=== PATIENT | female | born 1970 | race Caucasian/White ===

== ENCOUNTER → 2017-11-17 | Outpatient (CLI) | payer OTHER ==
[2017-11-17 11:25] LABS: ALANINE AMINOTRANSFERASE 66 U/L (9-52); ALBUMIN 4.1 g/dL (3.5-5.0); ALKALINE PHOSPHATASE 62 U/L (38-126); ANION GAP 12 (5-19); ASPARTATE AMINO TRANSFERASE 51 U/L (14-36); BILIRUBIN,DIRECT 0.4 mg/dL (0.0-0.4); BILIRUBIN,TOTAL 0.4 mg/dL (0.2-1.3); BLOOD UREA NITROGEN 13 mg/dL (7-20); CALCIUM 9.5 mg/dL (8.4-10.2); CARBON DIOXIDE 21 mmol/L (22-30); CHLORIDE 103 mmol/L (98-107); CHOLESTEROL 136.49 mg/dL (0-200); GLUCOSE 260 mg/dL (75-110); POTASSIUM 4.8 mmol/L (3.6-5.0); SODIUM 135.8 mmol/L (137-145); TOTAL PROTEIN 7.2 g/dL (6.3-8.2); TRIGLYCERIDES 354 mg/dL (<150)
[2017-11-17 11:36] LABS: DIRECT LDL 72 mg/dL (<100)
[2017-11-17 12:13] LABS: VLDL CHOLESTEROL 70.8 mg/dL (10-31)
[2017-11-18 10:38] LABS: CREATININE URINE 80.5 mg/dL (Not Estab.); MICROALBUMIN URINE 12.5 ug/mL (Not Estab.)
== END ==
LOC: OD 09:11
PROVIDERS: ATTEND Family Medicine
DX: E11.9 Type 2 diabetes mellitus without complications (principal); E53.8 Deficiency of other specified B group vitamins
CPT/HCPCS: 36415; 80053; 80061; 82043; 82570; 82607; 83036

== ENCOUNTER → 2018-05-16 | Outpatient (CLI) | payer OTHER ==
[2018-05-16 10:54] LABS: ABSOLUTE EOSINOPHILS # (AUTO) 0.1 10^3/uL (0.0-0.6); ABSOLUTE LYMPHOCYTES (AUTO) 2.5 10^3/uL (0.5-4.7); ABSOLUTE MONOCYTES (AUTO) 0.6 10^3/uL (0.1-1.4); ABSOLUTE NEUT (AUTO) 3.1 10^3/uL (1.7-8.2); BASOPHILS % (AUTO) 0.4 % (0-2); EOSINOPHILS % (AUTO) 2.3 % (0-6); HEMATOCRIT 41.9 % (36.0-47.0); HEMOGLOBIN 14.6 g/dL (12.0-15.5); MEAN CORPUSCULAR HEMOGLOBIN 30.4 pg (27.0-33.4); MEAN CORPUSCULAR HGB CONC 34.8 g/dL (32.0-36.0); MEAN CORPUSCULAR VOLUME 87 fl (80-97); MONOCYTES % (AUTO) 8.8 % (3-13); PLATELET COUNT 242 10^3/uL (150-450); RED BLOOD COUNT 4.79 10^6/uL (3.72-5.28); RED CELL DISTRIBUTION WIDTH 13.6 % (11.5-14.0); SEGMENTED NEUTROPHILS % (AUTO) 48.5 % (42-78); TOTAL CELLS COUNTED % (AUTO) 100 %; WHITE BLOOD COUNT 6.4 10^3/uL (4.0-10.5)
[2018-05-16 11:39] LABS: ALANINE AMINOTRANSFERASE 122 U/L (9-52); ALBUMIN 4.4 g/dL (3.5-5.0); ALKALINE PHOSPHATASE 54 U/L (38-126); ANION GAP 15 (5-19); ASPARTATE AMINO TRANSFERASE 125 U/L (14-36); BILIRUBIN,DIRECT 0.3 mg/dL (0.0-0.4); BILIRUBIN,TOTAL 0.5 mg/dL (0.2-1.3); BLOOD UREA NITROGEN 9 mg/dL (7-20); CALCIUM 9.6 mg/dL (8.4-10.2); CARBON DIOXIDE 22 mmol/L (22-30); CHLORIDE 103 mmol/L (98-107); CHOLESTEROL 113.07 mg/dL (0-200); GLUCOSE 184 mg/dL (75-110); POTASSIUM 4.6 mmol/L (3.6-5.0); SODIUM 139.6 mmol/L (137-145); TOTAL PROTEIN 7.5 g/dL (6.3-8.2); TRIGLYCERIDES 155 mg/dL (<150)
[2018-05-16 11:49] LABS: DIRECT LDL 55 mg/dL (<100)
[2018-05-17 12:38] LABS: CREATININE URINE 248.7 mg/dL (Not Estab.); MICROALBUMIN URINE 91.6 ug/mL (Not Estab.)
== END ==
LOC: OD 09:22
PROVIDERS: ATTEND Family Medicine Geriatric Medicine
DX: E11.9 Type 2 diabetes mellitus without complications (principal); E78.5 Hyperlipidemia, unspecified; E53.8 Deficiency of other specified B group vitamins; E55.9 Vitamin D deficiency, unspecified; Z79.899 Other long term (current) drug therapy
CPT/HCPCS: 36415; 80053; 80061; 82043; 82306; 82570; 82607; 83036; 84443; 85025

== ENCOUNTER 2018-06-16 20:52 | Emergency (ER) | payer OTHER ==
--- NOTE | 2018-06-16 21:59 | ER Document Report ---
ED Extremity Problem, Lower - General Mode of Arrival: Ambulatory Information source: Patient TRAVEL OUTSIDE OF THE [place] IN LAST 30 DAYS: No <CHET MAYER - Last Filed: 06/16/18 22:52> <DAREK OWENS - Last Filed: 06/17/18 00:01> - General Chief Complaint: Foot Injury Stated Complaint: FOOT INJURY Time Seen by Provider: 06/16/18 21:28 Notes: 48-year-old female who presents to the emergency department today with complaints of a left foot injury. Patient states she was putting a shopping cart back when she slammed her left fourth toe under the cart. Patient has a blood blister to the end of the fourth digit and pain with movement of this digit. Patient able to ambulate with pain. (CHET MAYER) - Related Data Allergies/Adverse Reactions: No Known Allergies Allergy (Unverified 07/05/13 11:00) Past Medical History - General Information source: Patient - Social History Smoking Status: Never Smoker Cigarette use (# per day): No Frequency of alcohol use: None Drug Abuse: None Lives with: Family Family History: Reviewed & Not Pertinent Patient has suicidal ideation: No Patient has homicidal ideation: No Pulmonary Medical History: Reports: Hx Asthma - hx of ON FLONASE AND ALBUTEROL, Hx Bronchitis - hx of, Hx Pneumonia - hx of Endocrine Medical History: Reports: Hx Diabetes Mellitus Type 2 Past Surgical History: Reports: Hx Section - x4, Hx Gynecologic Surgery - STATES BENIGN ABD MASS RELATED TO ENDOMETRIOSIS, Hx Hysterectomy, Hx Orthopedic Surgery - shoulder rotater - Immunizations Hx Diphtheria, Pertussis, Tetanus Vaccination: Yes <CHET MAYER - Last Filed: 06/16/18 22:52> Review of Systems - Review of Systems Constitutional: No symptoms reported EENT: No symptoms reported Cardiovascular: No symptoms reported Respiratory: No symptoms reported Gastrointestinal: No symptoms reported Genitourinary: No symptoms reported Female Genitourinary: No symptoms reported Musculoskeletal: See HPI, Other - left 4th toe pain Skin: No symptoms reported Hematologic/Lymphatic: No symptoms reported Neurological/Psychological: No symptoms reported -: Yes All other systems reviewed and negative <CHET MAYER - Last Filed: 06/16/18 22:52> Physical Exam - Vital signs Interpretation: Normal - General General appearance: Appears well, Alert - HEENT Head: Normocephalic, Atraumatic Eyes: Normal Pupils: PERRL - Respiratory Respiratory status: No respiratory distress Chest status: Nontender Breath sounds: Normal Chest palpation: Normal - Cardiovascular Rhythm: Regular Heart sounds: Normal auscultation Murmur: No - Abdominal Inspection: Normal Distension: No distension Bowel sounds: Normal Tenderness: Nontender Organomegaly: No organomegaly - Back Back: Normal, Nontender - Extremities General upper extremity: Normal inspection, Nontender, Normal color, Normal ROM , Normal temperature General lower extremity: Tender, Normal color, Normal ROM, Normal temperature, Normal weight bearing. No: Kevin's sign Hip: Normal Thigh: Normal Knee: Normal Calf: Normal Ankle: Normal Foot: Tender - 4th toe Blood under nail, blood blister at end of nail - Neurological Neuro grossly intact: Yes Cognition: Normal Orientation: AAOx4 [place] Coma Scale Eye Opening: Spontaneous Dara Coma Scale Verbal: Oriented Dara Coma Scale Motor: Obeys Commands [place] Coma Scale Total: 15 Speech: Normal Motor strength normal: LUE, RUE, LLE, RLE Sensory: Normal - Psychological Associated symptoms: Normal affect, Normal mood - Skin Skin Temperature: Warm Skin Moisture: Dry Skin Color: Normal <DAREK OWENS - Last Filed: 06/17/18 00:01> - Vital signs Vitals: Temp Pulse Resp BP Pulse Ox 98.0 F 116 H 16 144/94 H 97 06/16/18 20:56 06/16/18 20:56 06/16/18 20:56 06/16/18 20:56 06/16/18 20:56 Course <CHET MAYER - Last Filed: 06/16/18 22:52> - Diagnostic Test Radiology reviewed: Reports reviewed <DAREK OWENS - Last Filed: 06/17/18 00:01> - Re-evaluation Re-evalutation: 06/16/18 Patient with foot injury who is diabetic. No open wound. It appears that there is blood under the nail and a blood blister at the toe. No evidence for fracture on x-ray. Nail has been trephinated and blood blister drained patient started on Keflex due to history of diabetes although she does not have neuropathy. She is to keep the wound clean and dry, soak it daily and follow- up with her doctor. Understands and agrees with plan. Please see procedure note. Stable for discharge home. Grateful for care. (DAREK OWENS) - Vital Signs Vital signs: Temp Pulse Resp BP Pulse Ox 98.5 F 83 18 125/80 99 06/16/18 23:36 06/16/18 23:36 06/16/18 23:36 06/16/18 23:36 06/16/18 23:36 Procedures - Nail Trephanation/Removal Foot Time completed: 23:15 - left 4th digit Betadine prep applied: Yes Method of Drainage: Nail cauterized Sterile Dressing Applied: Yes Finger Splint: No <DAREK OWENS - Last Filed: 06/17/18 00:01> Discharge <CHET MAYER - Last Filed: 06/16/18 22:52> <DAREK OWENS - Last Filed: 06/17/18 00:01> - Discharge Clinical Impression: Blood blister, Nail bed injury, Subungual hematoma Foot contusion Qualifiers: Encounter type: initial encounter Laterality: left Qualified Code(s): S90.32XA - Contusion of left foot, initial encounter Condition: Stable Disposition: HOME, SELF-CARE Instructions: Avulsed Nail ([facility]), Contusion ([facility]) Additional Instructions: Please follow-up with your doctor. Return if you have any worsening or concerns or symptoms. Prescriptions: Cephalexin Monohydrate [Keflex 500 mg Capsule] 500 mg PO Q6H 7 Days capsule Referrals: SILVIA JACQUES MD [Primary Care Provider] - Follow up in 3-5 days Scribe Attestation: 06/17/18 00:01 I personally performed the services described in the documentation, reviewed and edited the documentation which was dictated to the scribe in my presence, and it accurately records my words and actions. (DAREK OWENS) Scribe Documentation - Scribe Written by Lewis:: Lewis Erazo, 06/16/2018 [id number] acting as scribe for :: Ankit <CHET MAYER - Last Filed: 06/16/18 22:52>
--- NOTE | 2018-06-16 22:25 | RADIOLOGY REPORT (SQ) ---
3 VIEWS OF THE LEFT FOOT HISTORY: Foot injury. Pain to third and fourth digits. COMPARISON: None. FINDINGS/IMPRESSION: Normal bone mineralization. No acute fracture or malalignment. Mild degenerative changes of the first Type I accessory navicular. Surrounding soft tissues are swollen. No radiopaque foreign body is identified.
[2018-06-16] MEDS ORDERED: OXYCODONE-ACETAMINOPHEN 5-325 MG TABLET PO ONE (22:46)
[2018-06-16] MEDS ORDERED: HYDROCODONE/ACETAMINOPHEN 5-325 MG (6 TAB/ER DISP) PO PRN (23:19)
[2018-06-16 23:37] VITALS: BP 125/80
== END 2018-06-16 23:37 | disposition home or self-care (01) ==
LOC: ER 20:52
DX: S90.222A Contusion of left lesser toe(s) with damage to nail, initial encounter (principal); W22.8XXA Striking against or struck by other objects, initial encounter; Y93.89 Activity, other specified; E11.9 Type 2 diabetes mellitus without complications; J45.909 Unspecified asthma, uncomplicated
CPT/HCPCS: 99283

== ENCOUNTER → 2018-08-23 | Outpatient (CLI) | payer OTHER ==
[2018-08-23 13:54] LABS: A TYPE INFLUENZA AG NEGATIVE (NEGATIVE); B INFLUENZA AG NEGATIVE (NEGATIVE)
== END ==
LOC: OD 12:07
PROVIDERS: ATTEND Family Medicine Geriatric Medicine
DX: J04.0 Acute laryngitis (principal); R05 Cough
CPT/HCPCS: 87804

== ENCOUNTER → 2018-09-02 | Outpatient (CLI) | payer OTHER ==
[2018-09-02 08:23] LABS: ABSOLUTE EOSINOPHILS # (AUTO) 0.2 10^3/uL (0.0-0.6); ABSOLUTE LYMPHOCYTES (AUTO) 2.9 10^3/uL (0.5-4.7); ABSOLUTE MONOCYTES (AUTO) 0.4 10^3/uL (0.1-1.4); ABSOLUTE NEUT (AUTO) 3.2 10^3/uL (1.7-8.2); BASOPHILS % (AUTO) 0.5 % (0-2); EOSINOPHILS % (AUTO) 3.7 % (0-6); HEMATOCRIT 36.7 % (36.0-47.0); LYMPHOCYTES % (AUTO) 42.5 % (13-45); MEAN CORPUSCULAR HEMOGLOBIN 31.5 pg (27.0-33.4); MEAN CORPUSCULAR HGB CONC 35.4 g/dL (32.0-36.0); MEAN CORPUSCULAR VOLUME 89 fl (80-97); MONOCYTES % (AUTO) 6.1 % (3-13); PLATELET COUNT 277 10^3/uL (150-450); RED BLOOD COUNT 4.14 10^6/uL (3.72-5.28); RED CELL DISTRIBUTION WIDTH 13.3 % (11.5-14.0); SEGMENTED NEUTROPHILS % (AUTO) 47.2 % (42-78); TOTAL CELLS COUNTED % (AUTO) 100 %; WHITE BLOOD COUNT 6.8 10^3/uL (4.0-10.5)
[2018-09-02 09:05] LABS: ALANINE AMINOTRANSFERASE 95 U/L (9-52); AMYLASE 57 U/L (30-110); ANION GAP 13 (5-19); ASPARTATE AMINO TRANSFERASE 98 U/L (14-36); BLOOD UREA NITROGEN 14 mg/dL (7-20); CALCIUM 9.5 mg/dL (8.4-10.2); CARBON DIOXIDE 25 mmol/L (22-30); CHLORIDE 102 mmol/L (98-107); GAMMA-GLUTAMYL TRANSFERASE 122 U/L (8-78); GLUCOSE 186 mg/dL (75-110); POTASSIUM 4.1 mmol/L (3.6-5.0); SODIUM 140.2 mmol/L (137-145)
[2018-09-03 06:38] LABS: HEPATITIS A AB IGM Negative (Negative); HEPATITIS B CORE AB IGM Negative (Negative); HEPATITS B SURFACE ANTIGEN Negative (Negative)
[2018-09-03 12:37] LABS: CREATININE URINE 265.3 mg/dL (Not Estab.); MICROALBUMIN URINE 92.2 ug/mL (Not Estab.)
[2018-09-03 16:44] LABS: HEPATITIS C VIRUS ANTIBODY 0.2 s/co ratio (0.0-0.9)
== END ==
LOC: OD 07:11
PROVIDERS: ATTEND Family Medicine Geriatric Medicine
DX: E11.8 Type 2 diabetes mellitus with unspecified complications (principal); I10 Essential (primary) hypertension; J45.50 Severe persistent asthma, uncomplicated; Z79.899 Other long term (current) drug therapy
CPT/HCPCS: 36415; 80048; 80074; 82043; 82150; 82570; 82977; 83036; 84450; 84460; 85025

== ENCOUNTER → 2018-09-16 | Outpatient (CLI) | payer OTHER ==
[2018-09-18 06:11] LABS: MITOCHONDRIAL (M2) ANTIBODY 6.3 Units (0.0-20.0)
== END ==
LOC: OD 07:59
PROVIDERS: ATTEND Physician Assistant Surgical
DX: K76.0 Fatty (change of) liver, not elsewhere classified (principal); R94.5 Abnormal results of liver function studies
CPT/HCPCS: 36415; 86038; 86235; 86256

== ENCOUNTER → 2018-09-16 | Outpatient (CLI) | payer OTHER ==
--- NOTE | 2018-09-16 09:28 | WOMENS IMAGING REPORT ---
EXAM DESCRIPTION: U/S ABDOMEN LIMITED COMPLETED DATE/TIME: 09/16/2018 8:10 am REASON FOR STUDY: R94.5;K76.0 R94.5 ABNORMAL RESULTS OF LIVER FUNCTION STUDIES K76.0 FATTY (CHANGE OF) LIVER, NOT ELSEWHERE CLASSIFIED COMPARISON: None. TECHNIQUE: Dynamic and static grayscale images acquired of the abdomen and recorded on PACS. Additio nal selected color Doppler and spectral images recorded. LIMITATIONS: None. FINDINGS: PANCREAS: No masses. Visualized pancreatic duct normal caliber. LIVER: Normal size Mild fatty infiltration. No focal masses. LIVER VASCULATURE: Normal directional flow of the main portal vein and hepatic veins. GALLBLADDER: No stones. Normal wall thickness. No pericholecystic fluid. ULTRASOUND-DETECTED DINH'S SIGN: Negative. INTRAHEPATIC DUCTS AND COMMON DUCT: CBD and intrahepatic ducts normal caliber. No filling defects. INFERIOR VENA CAVA: Normal flow. AORTA: No aneurysm. RIGHT KIDNEY: Normal size. Normal echogenicity. No solid or suspicious masses. No hydronephros is. No calcifications. PERITONEAL AND RIGHT PLEURAL SPACE: No ascites or effusions. OTHER: No other significant findings. IMPRESSION: Fatty liver. No acute findings. TECHNICAL DOCUMENTATION: JOB ID: [id number] [employer]- All Rights Reserved Reading location - IP/workstation name: [email or web address]
== END ==
LOC: RAD 07:51
PROVIDERS: ATTEND Internal Medicine Gastroenterology
DX: K76.0 Fatty (change of) liver, not elsewhere classified (principal); R94.5 Abnormal results of liver function studies
CPT/HCPCS: 76705

== ENCOUNTER → 2018-10-01 | Outpatient (CLI) | payer OTHER ==
--- NOTE | 2018-10-01 13:12 | RADIOLOGY REPORT (SQ) ---
EXAM DESCRIPTION: CHEST 2 VIEWS COMPLETED DATE/TIME: 10/01/2018 12:51 pm REASON FOR STUDY: R05 COUGH COMPARISON: 06/19/2014 EXAM PARAMETERS: NUMBER OF VIEWS: two views TECHNIQUE: Digital Frontal and Lateral radiographic views of the chest acquired. RADIATION DOSE: NA LIMITATIONS: none FINDINGS: LUNGS AND PLEURA: No opacities, masses or pneumothorax. No pleural effusion. MEDIASTINUM AND HILAR STRUCTURES: No masses or contour abnormalities. HEART AND VASCULAR STRUCTURES: Heart normal size. No evidence for failure. BONES: No acute findings. HARDWARE: None in the chest. OTHER: No other significant finding. IMPRESSION: NO ACUTE RADIOGRAPHIC FINDING IN THE CHEST. TECHNICAL DOCUMENTATION: JOB ID: [id number] [employer]- All Rights Reserved Reading location - IP/workstation name: [email or web address]
== END ==
LOC: RAD 12:33
PROVIDERS: ATTEND Pediatrics Neonatal-Perinatal Medicine
DX: R05 Cough (principal)
CPT/HCPCS: 71046

== ENCOUNTER → 2018-11-15 | Outpatient (CLI) | payer SELFPAY ==
[2018-11-15 10:30] LABS: ABSOLUTE EOSINOPHILS # (AUTO) 0.2 10^3/uL (0.0-0.6); ABSOLUTE MONOCYTES (AUTO) 0.5 10^3/uL (0.1-1.4); ABSOLUTE NEUT (AUTO) 3.7 10^3/uL (1.7-8.2); BASOPHILS % (AUTO) 0.6 % (0-2); EOSINOPHILS % (AUTO) 2.8 % (0-6); HEMATOCRIT 40.5 % (36.0-47.0); HEMOGLOBIN 14.3 g/dL (12.0-15.5); LYMPHOCYTES % (AUTO) 40.4 % (13-45); MEAN CORPUSCULAR HEMOGLOBIN 31.1 pg (27.0-33.4); MEAN CORPUSCULAR HGB CONC 35.2 g/dL (32.0-36.0); MEAN CORPUSCULAR VOLUME 88 fl (80-97); MONOCYTES % (AUTO) 6.8 % (3-13); PLATELET COUNT 273 10^3/uL (150-450); RED BLOOD COUNT 4.59 10^6/uL (3.72-5.28); RED CELL DISTRIBUTION WIDTH 13.7 % (11.5-14.0); SEGMENTED NEUTROPHILS % (AUTO) 49.4 % (42-78); TOTAL CELLS COUNTED % (AUTO) 100 %; WHITE BLOOD COUNT 7.4 10^3/uL (4.0-10.5)
[2018-11-15 11:12] LABS: ALANINE AMINOTRANSFERASE 91 U/L (9-52); ALBUMIN 4.7 g/dL (3.5-5.0); ALKALINE PHOSPHATASE 59 U/L (38-126); AMYLASE 66 U/L (30-110); ANION GAP 13 (5-19); ASPARTATE AMINO TRANSFERASE 69 U/L (14-36); BILIRUBIN,DIRECT 0.2 mg/dL (0.0-0.4); BILIRUBIN,TOTAL 0.4 mg/dL (0.2-1.3); BLOOD UREA NITROGEN 12 mg/dL (7-20); CALCIUM 10.1 mg/dL (8.4-10.2); CARBON DIOXIDE 24 mmol/L (22-30); CHLORIDE 104 mmol/L (98-107); GLUCOSE 163 mg/dL (75-110); LIPASE 84.5 U/L (23-300); POTASSIUM 4.9 mmol/L (3.6-5.0); SODIUM 140.8 mmol/L (137-145); TOTAL PROTEIN 7.7 g/dL (6.3-8.2)
== END ==
LOC: LAB 09:47
PROVIDERS: ATTEND Physician Assistant Surgical
DX: R10.816 Epigastric abdominal tenderness (principal); R10.811 Right upper quadrant abdominal tenderness; R11.0 Nausea
CPT/HCPCS: 36415; 80048; 80076; 82150; 83690; 85025

== ENCOUNTER → 2018-11-18 | Outpatient (CLI) | payer OTHER ==
--- NOTE | 2018-11-18 10:08 | RADIOLOGY REPORT (SQ) ---
EXAM DESCRIPTION: CT ABDOMEN WITH IV ORAL CONT COMPLETED DATE/TIME: 11/18/2018 9:29 am REASON FOR STUDY: ABD TENDERNESS, EPIGASTRIC (R10.816), NAUSEA (R11.0) R10.811 RIGHT UPPER QUADRANT ABDOMINAL TENDERNESS COMPARISON: CT abdomen pelvis 06/02/2013 Abdominal ultrasound 09/16/2018 TECHNIQUE: CT scan of the abdomen performed with intravenous and with oral contrast using helical sc anning technique with dynamic intravenous contrast injection. Images reviewed with lung, soft tissue, and bone windows. Reconstructed coronal and sagittal MPR images reviewed. Delayed images for evaluat ion of the urinary system also acquired and evaluated. All images stored on PACS. All CT scanners at this facility use dose modulation, iterative reconstruc tion, and/or weight based dosing when appropriate to reduce radiation dose to as low as reasonably ac hievable (ALARA). [facility]: Dose Right [facility]: CareDose [facility]: Dose Right [facility]: Teradose 4D [facility]: Ybrain CONTRAST TYPE AND DOSE: contrast/concentration: Isovue 350.00 mg/ml; Total Contrast Delivered: 99.0 ml; Total Saline Delivered: 70.0 ml RENAL FUNCTION: Creatinine 0.5 RADIATION DOSE: CT Rad equipment meets quality standard of care and radiation dose reduction techniq ues were employed. CTDIvol: 18.4 - 20.7 mGy. DLP: 1484 mGy-cm. . LIMITATIONS: None. FINDINGS: LOWER CHEST: No significant findings. No nodules or infiltrates. LIVER: Normal size. No masses. No dilated ducts. SPLEEN: Normal size. No focal lesions. PANCREAS: No masses. No significant calcifications. No adjacent inflammation or peripancreatic fluid collections. Pancreatic duct not dilated. GALLBLADDER: No identified stones by CT criteria. No inflammatory changes to suggest cholecystitis. ADRENAL GLANDS: No significant masses or asymmetry. RIGHT KIDNEY AND URETER: No solid masses. No significant calcifications. No hydronephrosis or hyd roureter. LEFT KIDNEY AND URETER: No solid masses. No significant calcifications. No hydronephrosis or hydr oureter. AORTA AND VESSELS: No aneurysm. No dissection. Renal arteries, SMA, celiac without stenosis. RETROPERITONEUM: No retroperitoneal adenopathy, hemorrhage or masses. BOWEL AND PERITONEAL CAVITY: No masses or inflammatory changes. No free fluid or peritoneal masses. APPENDIX: Not in the field of view ABDOMINAL WALL: No masses. No hernias. BONES: No significant or acute findings. OTHER: No other significant finding. IMPRESSION: NORMAL CT OF THE ABDOMEN WITH INTRAVENOUS CONTRAST. TECHNICAL DOCUMENTATION: JOB ID: [id number] Quality ID # [id number]: Final reports with documentation of one or more dose reduction techniques (e.g., Au tomated exposure control, adjustment of the mA and/or kV according to patient size, use of iterative reconstruction technique) 2010 [employer]- All Rights Reserved Reading location - IP/workstation name: [email or web address]
== END ==
LOC: RAD 08:38
PROVIDERS: ATTEND Internal Medicine Gastroenterology
DX: R10.816 Epigastric abdominal tenderness (principal); R10.811 Right upper quadrant abdominal tenderness; R11.0 Nausea
CPT/HCPCS: 74160

== ENCOUNTER → 2019-09-12 | Outpatient (CLI) | payer OTHER ==
--- NOTE | 2019-09-12 12:42 | RADIOLOGY REPORT (SQ) ---
EXAM DESCRIPTION: CHEST PA/LATERAL COMPLETED DATE/TIME: 09/12/2019 12:34 pm REASON FOR STUDY: UNSPECIFIED ASTHMA, UNCOMPLICATED,WHEEZING COMPARISON: 10/01/2018 EXAM PARAMETERS: NUMBER OF VIEWS: two views TECHNIQUE: Digital Frontal and Lateral radiographic views of the chest acquired. RADIATION DOSE: NA LIMITATIONS: none FINDINGS: LUNGS AND PLEURA: No opacities, masses or pneumothorax. No pleural effusion. MEDIASTINUM AND HILAR STRUCTURES: No masses or contour abnormalities. HEART AND VASCULAR STRUCTURES: Heart normal size. No evidence for failure. BONES: No acute findings. HARDWARE: None in the chest. OTHER: No other significant finding. IMPRESSION: NO SIGNIFICANT RADIOGRAPHIC FINDING IN THE CHEST. TECHNICAL DOCUMENTATION: JOB ID: [id number] [employer]- All Rights Reserved Reading location - IP/workstation name: [email or web address]
== END ==
LOC: OD 12:18
PROVIDERS: ATTEND Family Medicine Geriatric Medicine
DX: J45.909 Unspecified asthma, uncomplicated (principal)
CPT/HCPCS: 71046

== ENCOUNTER 2019-09-15 18:40 | Inpatient (IN) | payer OTHER ==
[2019-09-15] MEDS ORDERED: IPRATROPIUM/ALBUTEROL 0.5-2.5 MG/3 ML AMPUL NEB ONE ×4 (18:50→22:11)
[2019-09-15] MEDS ORDERED: METHYLPREDNISOLONE INJ 125 MG/2 ML SDV IV ONE (18:51)
--- NOTE | 2019-09-15 18:55 | ER Document Report ---
ED Respiratory Problem - General Chief Complaint: Breathing Difficulty Stated Complaint: DIFFICULTY BREATHING Time Seen by Provider: 09/15/19 18:49 Primary Care Provider: SILVIA JACQUES MD [Primary Care Provider] - Follow up as needed Mode of Arrival: Wheelchair Information source: Patient Notes: 49-year-old female presented to ED for very short of breath and unable to catch her breath. She does have a history of asthma and respiratory failure. She is breathing very shallow very fast. O2 sats are 100% but her respirations are labored. Lung sounds do have a very pronounced squeak at the end of the inspiratory phase. I have greeted and performed a rapid initial assessment of this patient. A comprehensive ED assessment and evaluation of the patient, analysis of test results and completion of medical decision making process will be conducted by an additional ED providers. TRAVEL OUTSIDE OF THE [place] IN LAST 30 DAYS: No - Related Data Allergies/Adverse Reactions: No Known Allergies Allergy (Unverified 07/05/13 11:00) Past Medical History - Social History Family History: Reviewed & Not Pertinent - Past Medical History Cardiac Medical History: Denies: Hx Coronary Artery Disease, Hx Heart Attack, Hx Hypertension Pulmonary Medical History: Reports: Hx Asthma - hx of ON FLONASE AND ALBUTEROL, Hx Bronchitis - hx of, Hx Pneumonia - hx of Denies: Hx COPD Neurological Medical History: Denies: Hx Cerebrovascular Accident, Hx Seizures Endocrine Medical History: Reports: Hx Diabetes Mellitus Type 2 Renal/ Medical History: Denies: Hx Peritoneal Dialysis Musculoskeletal Medical History: Denies Hx Arthritis Past Surgical History: Reports: Hx Section - x4, Hx Gynecologic Surgery - STATES BENIGN ABD MASS RELATED TO ENDOMETRIOSIS, Hx Hysterectomy, Hx Orthopedic Surgery - shoulder rotater - Immunizations Hx Diphtheria, Pertussis, Tetanus Vaccination: Yes Physical Exam - Vital signs Vitals: Temp Pulse Resp BP Pulse Ox 97.9 F 84 64 H 143/96 H 100 09/15/19 18:47 09/15/19 18:47 09/15/19 18:47 09/15/19 18:47 09/15/19 18:47 Course - Vital Signs Vital signs: Temp Pulse Resp BP Pulse Ox 97.9 F 84 64 H 143/96 H 100 09/15/19 18:47 09/15/19 18:47 09/15/19 18:47 09/15/19 18:47 09/15/19 18:47 Discharge - Discharge Referrals: SILVIA JACQUES MD [Primary Care Provider] - Follow up as needed
--- NOTE | 2019-09-15 18:57 | ER Document Report ---
ED Medical Screen (RME) - General Chief Complaint: Shortness Of Breath Stated Complaint: DIFFICULTY BREATHING Time Seen by Provider: 09/15/19 18:49 Primary Care Provider: SILVIA JACQUES MD [Primary Care Provider] - Follow up as needed Mode of Arrival: Wheelchair Notes: 49-year-old female presented to ED for very short of breath and unable to catch her breath. She does have a history of asthma and respiratory failure. She is breathing very shallow very fast. O2 sats are 100% but her respirations are labored. Lung sounds do have a very pronounced squeak at the end of the inspiratory phase. I have greeted and performed a rapid initial assessment of this patient. A comprehensive ED assessment and evaluation of the patient, analysis of test results and completion of medical decision making process will be conducted by an additional ED providers. TRAVEL OUTSIDE OF THE [place] IN LAST 30 DAYS: No - Related Data Allergies/Adverse Reactions: No Known Allergies Allergy (Unverified 07/05/13 11:00) Past Medical History - Social History Frequency of alcohol use: None Drug Abuse: None - Past Medical History Cardiac Medical History: Denies: Hx Coronary Artery Disease, Hx Heart Attack, Hx Hypertension Pulmonary Medical History: Reports: Hx Asthma - hx of ON FLONASE AND ALBUTEROL, Hx Bronchitis - hx of, Hx Pneumonia - hx of Denies: Hx COPD Neurological Medical History: Denies: Hx Cerebrovascular Accident, Hx Seizures Endocrine Medical History: Reports: Hx Diabetes Mellitus Type 2 Renal/ Medical History: Denies: Hx Peritoneal Dialysis Musculoskeltal Medical History: Denies Hx Arthritis Past Surgical History: Reports: Hx Section - x4, Hx Gynecologic Surgery - STATES BENIGN ABD MASS RELATED TO ENDOMETRIOSIS, Hx Hysterectomy, Hx Orthopedic Surgery - shoulder rotater - Immunizations Hx Diphtheria, Pertussis, Tetanus Vaccination: Yes Physical Exam - Vital signs Vitals: Temp Pulse Resp BP Pulse Ox 97.9 F 84 64 H 143/96 H 100 09/15/19 18:47 09/15/19 18:47 09/15/19 18:47 09/15/19 18:47 09/15/19 18:47 Course - Vital Signs Vital signs: Temp Pulse Resp BP Pulse Ox 97.9 F 84 64 H 143/96 H 100 09/15/19 18:47 09/15/19 18:47 09/15/19 18:47 09/15/19 18:47 09/15/19 18:47 Doctor's Discharge - Discharge Referrals: SILVIA JACQUES MD [Primary Care Provider] - Follow up as needed
[2019-09-15] MEDS ORDERED: ALBUTEROL SULFATE 0.083% NEB 2.5 MG/3 ML AMPUL NEB SCH (19:00)
--- NOTE | 2019-09-15 19:12 | ER Document Report ---
ED General - General Chief Complaint: Shortness Of Breath Stated Complaint: DIFFICULTY BREATHING Time Seen by Provider: 09/15/19 18:49 Primary Care Provider: SILVIA JACQUES MD [Primary Care Provider] - Follow up as needed Mode of Arrival: Wheelchair TRAVEL OUTSIDE OF THE [place] IN LAST 30 DAYS: No - HPI Notes: Ms. Adan is a 49-year-old female with a longstanding history of severe asthma previously requiring admission to the critical care unit and intubation now presenting with sudden onset of respiratory distress within the last hour associated with wheezing and difficulty breathing. She denies chest pain. She denies fever. She denies sputum production. She says she is fully compliant with all of her usual medications. She is a non-smoker. Patient denies any history of drug abuse. Occasional social alcohol consumption. Pertinent prior history: Asthma is noted. Patient is also a type II diabetic. Previous surgery includes and hysterectomy. - Related Data Allergies/Adverse Reactions: No Known Allergies Allergy (Unverified 07/05/13 11:00) Past Medical History - General Information source: Patient, Relative - Social History Smoking Status: Never Smoker Frequency of alcohol use: None Drug Abuse: None Family History: Reviewed & Not Pertinent Patient has suicidal ideation: No Patient has homicidal ideation: No - Past Medical History Cardiac Medical History: Denies: Hx Coronary Artery Disease, Hx Heart Attack, Hx Hypertension Pulmonary Medical History: Reports: Hx Asthma - hx of ON FLONASE AND ALBUTEROL, Hx Bronchitis - hx of, Hx Pneumonia - hx of Denies: Hx COPD Neurological Medical History: Denies: Hx Cerebrovascular Accident, Hx Seizures Endocrine Medical History: Reports: Hx Diabetes Mellitus Type 2 Renal/ Medical History: Denies: Hx Peritoneal Dialysis Musculoskeletal Medical History: Denies Hx Arthritis Past Surgical History: Reports: Hx Section - x4, Hx Gynecologic Surgery - STATES BENIGN ABD MASS RELATED TO ENDOMETRIOSIS, Hx Hysterectomy, Hx Orthopedic Surgery - shoulder rotater - Immunizations Hx Diphtheria, Pertussis, Tetanus Vaccination: Yes Review of Systems - Review of Systems Notes: Constitutional: Negative for fever. HENT: Negative for sore throat. Eyes: Negative for visual changes. Cardiovascular: Negative for chest pain. Respiratory: As per HPI. Gastrointestinal: Negative for abdominal pain, vomiting or diarrhea. Genitourinary: Negative for dysuria. Musculoskeletal: Negative for back pain. Skin: Negative for rash. Neurological: Negative for headaches, weakness or numbness. 10 point ROS negative except as marked above and in HPI. Physical Exam - Vital signs Vitals: Temp Pulse Resp BP Pulse Ox 97.9 F 84 64 H 143/96 H 100 09/15/19 18:47 09/15/19 18:47 09/15/19 18:47 09/15/19 18:47 09/15/19 18:47 - Notes Notes: GENERAL: Mildly obese female of approximately stated age appearing breathless and anxious in moderate distress. SKIN: Diaphoretic. Good turgor no rashes. HEAD: Normocephalic atraumatic. EYES: PERRLA. EOMI. Conjunctivae and sclerae clear. EARS: CANALS AND TMS CLEAR. NOSE: CLEAR. MOUTH: Moist mucosa. Good dentition. No stridor or edema. No drooling. NECK: Supple. No masses or thyromegaly. No adenopathy. Carotids 2+ without bruits. No JVD. BACK: Symmetrical without tenderness. CHEST: Tachypnea with moderate use of accessory muscles. Poor air movement. Tight wheezes bilaterally. Scattered rhonchi. HEART: Regular rhythm. No murmur gallop or rub. ABDOMEN: Mildly obese. Soft nontender without masses, organomegaly or rebound. Bowel sounds normally active. No bruits. GENITALIA: Deferred. EXTREMITIES: No edema. No calf tenderness. Cap refill less than 1.5 seconds. Dorsalis pedis and posterior tibial pulses 3+ and symmetrical. NEUROLOGICAL: GCS 15. Alert and oriented x3. Normal gait. Fluent speech. Cranial nerves II through XII intact. Sensorimotor and cerebellar normal. Normal tone. PSYCHIATRIC: Anxious but cooperative Course - Re-evaluation Re-evalutation: 09/15/19 19:52 Patient initially received IV magnesium, IV Solu-Medrol, multiple DuoNeb treatments and IV normal saline along with supplemental oxygen. Wheezes were very tight and she is very anxious and looked as though she might require intubation on arrival. My recheck at this time shows that her respiratory rate has slowed she is much more comfortable now. She still has bilateral wheezes but she is moving air much better. Chest x-ray is reviewed and shows no obvious focal infiltrate nor pneumothorax. Formal read from radiologist is pending. All labs remain pending at this time. We will keep her on 2 L nasal O2 as she is maintaining a 98% sat with this and appears to be doing much better. 09/15/19 22:16 Patient is very comfortable with this time on 2 L of nasal O2 with a saturation of 97%. Heart rate is 100 respirations are 22/min. She is breathing comfortably at rest. When I asked her to take deep breaths she had another paroxysm of coughing and she definitely has persistent and expiratory wheezes. Her chest x-ray did not show any infiltrate. Findings are discussed with the on-call hospitalist Dr. Merino who will admit to the floor. I have ordered an additional nebulizer treatment for at this time. - Vital Signs Vital signs: Temp Pulse Resp BP Pulse Ox 97.9 F 84 26 H 146/82 H 92 09/15/19 18:47 09/15/19 18:47 09/15/19 21:01 09/15/19 21:01 09/15/19 21:01 - Laboratory Result Diagrams: 09/15/19 19:39 09/15/19 19:39 Laboratory results interpreted by me: 09/15/19 09/15/19 09/15/19 19:39 19:39 21:15 WBC 13.1 H Lymph % (Auto) 52.2 H Absolute Lymphs (auto) 6.8 H Seg Neutrophils % 38.0 L Carbonic Acid 0.87 L ABG pCO2 29.0 L ABG pO2 135.2 H ABG HCO3 17.8 L ABG Total CO2 18.7 L ABG O2 Saturation 98.8 H Sodium 136.5 L Creatinine 0.49 L Glucose 181 H Calcium 10.3 H AST 75 H Critical Care Note - Critical Care Note Total time excluding time spent on procedures (mins): 35 Comments: IV, O2, monitor. Supplemental oxygen. [id number] nebulizer treatments with DuoNeb. IV magnesium. IV Solu-Medrol. ABG and chest x-ray requested. Flu swab requested. Lab request include blood culture CBC comprehensive metabolic profile. Request EKG and troponin. Discharge - Discharge Clinical Impression: Asthma exacerbation Qualifiers: Asthma severity: severe Asthma persistence: unspecified Qualified Code(s): J45.901 - Unspecified asthma with (acute) exacerbation Condition: Fair Disposition: ADMITTED INPATIENT Admitting Provider: Wilber (Hospitalist) Unit Admitted: Medical Floor Referrals: SILVIA JACQUES MD [Primary Care Provider] - Follow up as needed
[2019-09-15] MEDS: MAGNESIUM SULFATE/D5W 1 GM/100 ML RTUPB IV SCH ×2 (19:15→19:29)
[2019-09-15 19:54] LABS: ABSOLUTE EOSINOPHILS # (AUTO) 0.4 10^3/uL (0.0-0.6); ABSOLUTE LYMPHOCYTES (AUTO) 6.8 10^3/uL (0.5-4.7); ABSOLUTE MONOCYTES (AUTO) 0.9 10^3/uL (0.1-1.4); BASOPHILS % (AUTO) 0.3 % (0-2); EOSINOPHILS % (AUTO) 2.8 % (0-6); HEMATOCRIT 40.7 % (36.0-47.0); LYMPHOCYTES % (AUTO) 52.2 % (13-45); MEAN CORPUSCULAR HEMOGLOBIN 30.4 pg (27.0-33.4); MEAN CORPUSCULAR HGB CONC 34.4 g/dL (32.0-36.0); MEAN CORPUSCULAR VOLUME 88 fl (80-97); MONOCYTES % (AUTO) 6.7 % (3-13); PLATELET COUNT 275 10^3/uL (150-450); RED CELL DISTRIBUTION WIDTH 13.4 % (11.5-14.0); TOTAL CELLS COUNTED % (AUTO) 100 %; WHITE BLOOD COUNT 13.1 10^3/uL (4.0-10.5)
--- NOTE | 2019-09-15 19:59 | RADIOLOGY REPORT (SQ) ---
EXAM DESCRIPTION: CHEST SINGLE VIEW COMPLETED DATE/TIME: 09/15/2019 7:29 pm REASON FOR STUDY: SOB COMPARISON: 09/12/2019 EXAM PARAMETERS: NUMBER OF VIEWS: One view. TECHNIQUE: Single frontal radiographic view of the chest acquired. RADIATION DOSE: NA LIMITATIONS: None. FINDINGS: LUNGS AND PLEURA: No opacities, masses or pneumothorax. No pleural effusion. MEDIASTINUM AND HILAR STRUCTURES: No masses. Contour normal. HEART AND VASCULAR STRUCTURES: Heart normal in size. Normal vasculature. BONES: No acute findings. HARDWARE: None in the chest. OTHER: No other significant finding. IMPRESSION: NO ACUTE RADIOGRAPHIC FINDING IN THE CHEST. TECHNICAL DOCUMENTATION: JOB ID: [id number] [employer] All Rights Reserved Reading location - IP/workstation name: [email or web address]
[2019-09-15 20:13] LABS: ALBUMIN 4.5 g/dL (3.5-5.0); ALKALINE PHOSPHATASE 60 U/L (38-126); ANION GAP 14 (5-19); ASPARTATE AMINO TRANSFERASE 75 U/L (14-36); BILIRUBIN,DIRECT 0.3 mg/dL (0.0-0.4); BILIRUBIN,TOTAL 0.4 mg/dL (0.2-1.3); BLOOD UREA NITROGEN 12 mg/dL (7-20); CALCIUM 10.3 mg/dL (8.4-10.2); CARBON DIOXIDE 23 mmol/L (22-30); CHLORIDE 100 mmol/L (98-107); GLUCOSE 181 mg/dL (75-110); POTASSIUM 3.8 mmol/L (3.6-5.0); TOTAL PROTEIN 7.7 g/dL (6.3-8.2)
[2019-09-15 20:21] LABS: A TYPE INFLUENZA AG NEGATIVE (NEGATIVE); B INFLUENZA AG NEGATIVE (NEGATIVE)
[2019-09-15 21:27] LABS: ARTERIAL BLOOD BASE EXCESS -5.4 mmol/L; ARTERIAL BLOOD H2CO3 0.87 mmol/L (1.05-1.35); ARTERIAL BLOOD HCO3 17.8 mmol/L (20-24); ARTERIAL BLOOD O2 SATURATION 98.8 % (94-98); ARTERIAL BLOOD PH 7.41 (7.35-7.45); ARTERIAL BLOOD PO2 135.2 mmHg (80-100); ARTERIAL BLOOD TOTAL CO2 18.7 mmol/L (21-25)
[2019-09-15 21:28] LABS: ARTERIAL BLOOD FIO2 2L
[2019-09-15] MEDS ORDERED: MAGNESIUM HYDROXIDE SUSP 30 ML UDCUP PO PRN (22:47)
[2019-09-15] MEDS ORDERED: LEVALBUTEROL HCL NEB 0.63 MG/3 ML AMPUL NEB PRN (22:47)
[2019-09-15] MEDS ORDERED: MAG HYDROX/AL HYDROX/SIMETH SUSP 30 ML UDCUP PO PRN (22:47)
[2019-09-15] MEDS ORDERED: ONDANSETRON HCL INJ/PF 4 MG/2 ML SDV IV PRN (22:47)
[2019-09-15] MEDS ORDERED: ACETAMINOPHEN 325 MG TABLET PO PRN (22:52)
[2019-09-15] MEDS ORDERED: GLUCAGON,HUMAN RECOMB 1 MG INJ IM PRN (22:53)
[2019-09-15] MEDS ORDERED: DEXTROSE 50%-WATER 25 GM/50 ML DISP.SYRIN IV PRN ×2 (22:53)
[2019-09-15] MEDS ORDERED: DEXTROSE 40% GEL 15 GM TUBE PO PRN ×2 (22:53)
[2019-09-15] MEDS ORDERED: INSULIN REG, HUMAN 100 UNIT/ML 3 ML VIAL (PYX) SUBCUT ONE (23:30)
--- NOTE | 2019-09-15 23:40 | PDOC H&P ---
History of Present Illness Admission Date/PCP: 09/15/19 22:25 SILVIA JACQUES MD Patient complains of: Dyspnea History of Present Illness: RICARDO FARNSWORTH is a 49 year old female who presented to the emergency room with acute dyspnea. Patient admits a sudden onset of severe dyspnea less than an hour prior to her presentation to the emergency room. Her dyspnea was accompanied by severe wheezing, diaphoresis and air hunger. She denies other associated or accompanying signs and symptoms. She admits numerous prior similar episodes related to her asthma some requiring intubation and ventilat ion. She has not identified any aggravating or ameliorating factors for her dyspnea. In the emergency room she was found to have hypoxia and status asthmaticus. She has responded to treatment with improvement in her overall dyspnea and her hypoxia has been corrected with supplemental oxygen delivered via nasal cannula. Patient was subsequently admitted to hospital for further evaluation treatment. Past Medical History Cardiac Medical History: Denies: Atrial Fibrillation, Congestive Heart Failure, Coronary Artery Disease, Myocardial Infarction, Hyperlipidema, Hypertension Pulmonary Medical History: Reports: Asthma - Moderate persistent extrinsic asthma, Bronchitis, Intubation, Pneumonia, Respiratory Failure Denies: Chronic Obstructive Pulmonary Disease (COPD) EENT Medical History: Denies: Cataracts, Ears - Hearing aids Neurological Medical History: Denies: Hemorrhagic CVA, Ischemic CVA, Seizures Endocrine Medical History: Reports: Diabetes Mellitus Type 2, Obesity Denies: Diabetes Mellitus Type 1, Hyperthyroidism, Hypothyroidism Renal/ Medical History: Denies: Chronic Kidney Disease, Nephrolithiasis Malignancy Medical History: Reports: None GI Medical History: Denies: Cirrhosis, Crohn's Disease, Gastroesophageal Reflux Disease, Hepatitis, Peptic Ulcer Disease, Ulcerative Colitis Musculoskeltal Medical History: Denies: Arthritis, Gout Skin Medical History: Denies: Eczema, Psoriasis Psychiatric Medical History: Reports: Depression Denies: Alcohol Dependency, Substance Abuse, Tobacco Dependency Traumatic Medical History: Reports: None Hematology: Denies: Anemia, Bleeding Tendencies Infectious Medical History: Reports: None Past Surgical History Past Surgical History: Reports: Section - x4, Hysterectomy, Orthopedic Surgery - Rotator cuff Social History Information Source: Patient Lives with: Alone Smoking Status: Never Smoker Electronic Cigarette use?: No Frequency of Alcohol Use: Occasional Hx Recreational Drug Use: No Drugs: None Hx Prescription Drug Abuse: No - Advance Directive Resuscitation Status: Full Code Surrogate healthcare decision maker:: Gunner Trevino Family History Family History: Hypertension. denies: CAD, DM, Malignancy Parental Family History Reviewed: Yes Children Family History Reviewed: No Sibling(s) Family History Reviewed.: Yes Medication/Allergy Home Medications: Montelukast Sodium [Singulair 10 mg Tablet] 10 mg PO QHS 07/05/13 Glipizide/Metformin HCl [Glipizide-Metformin 5-500 mg] 1 each PO BID 12/12/13 Fluticasone Propionate [Flonase Nasal [place] 50 Mcg/[place] 16 gm] 2 sprays NASL Q12 06/20/14 Fluticasone/Salmeterol [Advair 250-50 Diskus 28 dose] 1 inh IH Q12H 06/20/14 Albuterol Sulfate [Proair HFA Inhalation Aerosol 8.5 gm MDI] 2 puff IH Q4HP PRN #1 hfa.aer.ad 06/22/14 Levofloxacin [Levaquin 750 mg Tablet] 750 mg PO DAILY #5 tablet 06/22/14 Methylprednisolone [Medrol Dosepack (4 mg/Tab) 21 Tab/Dosepak] 4 mg PO ASDIR PRN #21 tab.ds.pk 06/22/14 Cephalexin Monohydrate [Keflex 500 mg Capsule] 500 mg PO Q6H 7 Days capsule 06/16/18 Allergies/Adverse Reactions: No Known Allergies Allergy (Unverified 07/05/13 11:00) Review of Systems Constitutional: ABSENT: chills, fever(s) Eyes: ABSENT: visual disturbances, other - Eye pain Ears: ABSENT: hearing changes, other - Ear pain Nose, Mouth, and Throat: ABSENT: headache(s), mouth pain, sore throat Cardiovascular: ABSENT: chest pain, palpitations Respiratory: PRESENT: as per HPI, dyspnea, other - Wheezing and air hunger Gastrointestinal: ABSENT: abdominal pain, constipation, diarrhea, nausea, vomiting Genitourinary: ABSENT: dysuria, hematuria Integumentary: PRESENT: as per HPI, diaphoresis. ABSENT: pruritus, rash Neurological: ABSENT: confusion, convulsions, focal weakness, memory loss, syncope Psychiatric: ABSENT: anxiety, depression Endocrine: ABSENT: cold intolerance, heat intolerance Hematologic/Lymphatic: ABSENT: easy bleeding, easy bruising Allergic/Immunologic: ABSENT: seasonal rhinorrhea Physical Exam Vital Signs: Temp Pulse Resp BP Pulse Ox 97.9 F 84 26 H 146/82 H 92 09/15/19 18:47 09/15/19 18:47 09/15/19 21:01 09/15/19 21:01 09/15/19 21:01 Intake & Output 09/13/19 09/14/19 09/15/19 23:59 23:59 23:59 Intake Total 100 Balance 100 Weight 110.3 kg General appearance: PRESENT: cooperative, mild distress - Due to dyspnea, obese, other - On supplemental oxygen at time of my exam Head exam: PRESENT: atraumatic, normocephalic Eye exam: PRESENT: conjunctiva pink. ABSENT: conjunctival injection, scleral icterus Ear exam: PRESENT: normal external ear exam. ABSENT: bleeding, drainage Mouth exam: PRESENT: dry mucosa, neck supple Neck exam: ABSENT: thyromegaly, tracheal deviation Respiratory exam: PRESENT: accessory muscle use - Moderate accessory muscle use and tripoding noted, decreased breath sounds - Markedly decreased air movement throughout all west, prolonged expiratory phas - Severely prolonged expiratory phase in all west, symmetrical, tachypnea, wheezes - Faint/tight end-e xpiratory wheezes in all west Cardiovascular exam: PRESENT: RRR, tachycardia. ABSENT: clicks, gallop, rubs Pulses: PRESENT: normal radial pulses, normal dorsalis pedis pul Vascular exam: PRESENT: normal capillary refill. ABSENT: pallor GI/Abdominal exam: PRESENT: normal bowel sounds, soft Rectal exam: PRESENT: deferred Extremities exam: ABSENT: joint swelling, pedal edema Musculoskeletal exam: ABSENT: deformity, dislocation Neurological exam: PRESENT: alert, oriented to person, oriented to place, oriented to time, oriented to situation, CN II-XII grossly intact. ABSENT: motor sensory deficit Psychiatric exam: PRESENT: appropriate affect, normal mood Skin exam: PRESENT: dry, intact, warm. ABSENT: jaundice, rash, urticaria Results Laboratory Results: 09/15/19 19:39 09/15/19 19:39 09/15/19 09/15/19 09/15/19 19:39 19:39 21:15 WBC 13.1 H RBC 4.60 Hgb 14.0 Hct 40.7 MCV 88 MCH 30.4 MCHC 34.4 RDW 13.4 Plt Count 275 Seg Neutrophils % 38.0 L Carbonic Acid 0.87 L HCO3/H2CO3 Ratio 20:1 ABG pH 7.41 ABG pCO2 29.0 L ABG pO2 135.2 H ABG HCO3 17.8 L ABG O2 Saturation 98.8 H ABG Base Excess -5.4 FiO2 2L Sodium 136.5 L Potassium 3.8 Chloride 100 Carbon Dioxide 23 Anion Gap 14 BUN 12 Creatinine 0.49 L Est GFR ( Amer) > 60 Glucose 181 H Calcium 10.3 H Total Bilirubin 0.4 AST 75 H Alkaline Phosphatase 60 Total Protein 7.7 Albumin 4.5 09/15/19 19:39 Troponin I < 0.012 Impressions: Chest X-Ray 09/15/19 00:00 IMPRESSION: NO ACUTE RADIOGRAPHIC FINDING IN THE CHEST. Assessment and Plan - Diagnosis (1) Asthma with status asthmaticus in adult Qualifiers: Asthma severity: moderate Asthma persistence: persistent Qualified Cod e(s): J45.42 - Moderate persistent asthma with status asthmaticus Is this a current diagnosis for this admission?: Yes (2) Acute respiratory failure with hypoxia Is this a current diagnosis for this admission?: Yes (3) Diabetes mellitus type 2 in obese Is this a current diagnosis for this admission?: Yes (4) Obesity (BMI 30-39.9) Is this a current diagnosis for this admission?: Yes - Plan Summary Summary: Patient will be admitted to the medical floor for routine supportive and symptomatic cares. She will be treated with aggressive pulmonary toilet utilizing Xopenex, Atrovent and Pulmicort delivered via nebulizer therapy. She will be treated with supplemental oxygen utilizing nasal cannula and/or noninvasive airway pressure support devices as needed to maintain an adequate oxygen saturation greater than 93%. She will receive Solu-Medrol IV 40 mg every 6 hours x3 doses. She will be continued on her usual medications for her chronic medical problems as appropriate. She will be placed on a diabetic diet with before meals and at bedtime Accu-Cheks and a sliding scale insulin for hyperglycemia as well as a hypoglycemic protocol in place. Daily CBCs and metabolic profiles will be obtained as needed. - Time Time Spent with patient: 15-24 minutes Medications reviewed and adjusted accordingly: Yes Anticipated discharge: Home - Inpatient Certification Based on my medical assessment, after consideration of the patient's comorbidities, presenting symptoms, or acuity I expect that the services needed warrant INPATIENT care.: Yes I certify that my determination is in accordance with my understanding of Medicare's requirements for reasonable and necessary INPATIENT services [42 CFR 412.3e].: Yes Medical Necessity: Need Close Monitoring Due to Risk of Patient Decompensation, Need for Nebulizer Therapy and Monitoring of Response, Risk of Complication if Not Cared For in Hospital
[2019-09-15] MEDS: MONTELUKAST SODIUM 10 MG TABLET PO SCH (23:42)
[2019-09-15] MEDS: METHYLPREDNISOLONE INJ 40 MG/1 ML SDV IV SCH (23:42)
[2019-09-15] MEDS: FAMOTIDINE 20 MG TABLET PO SCH (23:42)
[2019-09-15] MEDS: RINGERS SOLUTION,LACTATED 1,000 ML IV PRN (23:43)
[2019-09-15] MEDS: LEVALBUTEROL HCL NEB 1.25 MG/3 ML AMPUL NEB SCH (23:56)
[2019-09-15] MEDS: IPRATROPIUM BROMIDE 0.02% NEB 0.5 MG/2.5 ML AMPUL NEB SCH (23:56)
[2019-09-16 06:16] LABS: HEMATOCRIT 37.9 % (36.0-47.0); MEAN CORPUSCULAR HEMOGLOBIN 30.4 pg (27.0-33.4); MEAN CORPUSCULAR HGB CONC 34.2 g/dL (32.0-36.0); MEAN CORPUSCULAR VOLUME 89 fl (80-97); PLATELET COUNT 270 10^3/uL (150-450); RED BLOOD COUNT 4.26 10^6/uL (3.72-5.28); RED CELL DISTRIBUTION WIDTH 13.5 % (11.5-14.0); WHITE BLOOD COUNT 10.2 10^3/uL (4.0-10.5)
[2019-09-16 06:49] LABS: ALBUMIN 4.1 g/dL (3.5-5.0); ALKALINE PHOSPHATASE 55 U/L (38-126); ANION GAP 16 (5-19); ASPARTATE AMINO TRANSFERASE 84 U/L (14-36); BILIRUBIN,DIRECT 0.3 mg/dL (0.0-0.4); BILIRUBIN,TOTAL 0.5 mg/dL (0.2-1.3); BLOOD UREA NITROGEN 12 mg/dL (7-20); CALCIUM 9.9 mg/dL (8.4-10.2); CARBON DIOXIDE 20 mmol/L (22-30); CHLORIDE 99 mmol/L (98-107); GLUCOSE 363 mg/dL (75-110); TOTAL PROTEIN 7.1 g/dL (6.3-8.2)
[2019-09-16] MEDS: METHYLPREDNISOLONE INJ 40 MG/1 ML SDV IV SCH ×3 (06:50→22:19)
[2019-09-16] MEDS: RINGERS SOLUTION,LACTATED 1,000 ML IV PRN (06:51)
[2019-09-16] MEDS: HEPARIN SOD (PORCINE) 5,000 UNIT/ML 1 ML VIAL SUBCUT SCH ×3 (06:51→22:20)
[2019-09-16 06:58] LABS: POTASSIUM 5.2 mmol/L (3.6-5.0)
[2019-09-16] MEDS: LEVALBUTEROL HCL NEB 1.25 MG/3 ML AMPUL NEB SCH ×2 (08:16→15:54)
[2019-09-16] MEDS: IPRATROPIUM BROMIDE 0.02% NEB 0.5 MG/2.5 ML AMPUL NEB SCH ×2 (08:16→15:54)
[2019-09-16] MEDS: BUDESONIDE NEB 0.5 MG/2 ML AMPUL NEB SCH ×2 (08:16→19:25)
[2019-09-16] MEDS: INSULIN REG, HUMAN 100 UNIT/ML 3 ML VIAL (PYX) SUBCUT SCH ×4 (09:14→22:19)
[2019-09-16] MEDS: FAMOTIDINE 20 MG TABLET PO SCH ×2 (09:14→22:20)
[2019-09-16] MEDS: METFORMIN HCL 500 MG TABLET PO SCH ×2 (09:14→17:50)
[2019-09-16] MEDS: GLIPIZIDE 5 MG TABLET PO SCH ×2 (09:14→17:51)
[2019-09-16] MEDS: DOCUSATE SODIUM 100 MG CAPSULE PO SCH ×2 (09:17→17:54)
[2019-09-16] MEDS ORDERED: DIAZEPAM 5 MG TABLET PO PRN (12:24)
--- NOTE | 2019-09-16 12:26 | PDOC PROGRESS REPORT ---
Subjective Progress Note for:: 09/16/19 Reason For Visit: ACUTE STATUS ASTHMATICUS, ACUTE RESPIRATORY 09/16/2018 Patient admitted for acute asthmatic attack Physical Exam Vital Signs: Temp Pulse Resp BP Pulse Ox 97.5 F 62 28 H 142/82 H 99 09/16/19 07:00 09/16/19 08:16 09/16/19 08:16 09/16/19 07:00 09/16/19 08:16 Intake & Output 09/15/19 09/16/19 09/17/19 06:59 06:59 06:59 Intake Total 9900 Balance 9900 Weight 112.4 kg General appearance: PRESENT: mild distress, other - Patient is feeling much better on BiPAP Respiratory exam: PRESENT: decreased breath sounds, other Cardiovascular exam: PRESENT: RRR. ABSENT: diastolic murmur, rubs, systolic murmur Neurological exam: PRESENT: alert, awake, oriented to person, oriented to place, oriented to time, oriented to situation, CN II-XII grossly intact. ABSENT: motor sensory deficit Psychiatric exam: PRESENT: appropriate affect, normal mood, other - Pleasant. ABSENT: homicidal ideation, suicidal ideation Results Laboratory Results: 09/16/19 05:33 09/16/19 05:33 09/15/19 09/15/19 09/15/19 19:39 19:39 21:15 WBC 13.1 H RBC 4.60 Hgb 14.0 Hct 40.7 MCV 88 MCH 30.4 MCHC 34.4 RDW 13.4 Plt Count 275 Seg Neutrophils % 38.0 L Carbonic Acid 0.87 L HCO3/H2CO3 Ratio 20:1 ABG pH 7.41 ABG pCO2 29.0 L ABG pO2 135.2 H ABG HCO3 17.8 L ABG O2 Saturation 98.8 H ABG Base Excess -5.4 FiO2 2L Sodium 136.5 L Potassium 3.8 Chloride 100 Carbon Dioxide 23 Anion Gap 14 BUN 12 Creatinine 0.49 L Est GFR ( Amer) > 60 Glucose 181 H Calcium 10.3 H Magnesium Total Bilirubin 0.4 AST 75 H Alkaline Phosphatase 60 Total Protein 7.7 Albumin 4.5 TSH 09/16/19 09/16/19 09/16/19 05:33 05:33 05:33 WBC 10.2 RBC 4.26 Hgb 13.0 Hct 37.9 MCV 89 MCH 30.4 MCHC 34.2 RDW 13.5 Plt Count 270 Seg Neutrophils % Carbonic Acid HCO3/H2CO3 Ratio ABG pH ABG pCO2 ABG pO2 ABG HCO3 ABG O2 Saturation ABG Base Excess FiO2 Sodium 134.8 L Potassium 5.2 H D Chloride 99 Carbon Dioxide 20 L Anion Gap 16 BUN 12 Creatinine 0.47 L Est GFR ( Amer) > 60 Glucose 363 H Calcium 9.9 Magnesium 2.0 Total Bilirubin 0.5 AST 84 H Alkaline Phosphatase 55 Total Protein 7.1 Albumin 4.1 TSH 0.39 L 09/15/19 19:39 Troponin I < 0.012 Impressions: Chest X-Ray 09/15/19 00:00 IMPRESSION: NO ACUTE RADIOGRAPHIC FINDING IN THE CHEST. Assessment and Plan - Diagnosis (1) Asthma exacerbation Qualifiers: Asthma severity: moderate Asthma persistence: persistent Qualified Code( s): J45.41 - Moderate persistent asthma with (acute) exacerbation Is this a current diagnosis for this admission?: Yes (2) Diabetes mellitus type 2 in obese Is this a current diagnosis for this admission?: Yes (3) Obesity (BMI 30-39.9) Is this a current diagnosis for this admission?: Yes - Plan Summary Summary: Patient will be admitted to the medical floor for routine supportive and symptomatic cares. She will be treated with aggressive pulmonary toilet utilizing Xopenex, Atrovent and Pulmicort delivered via nebulizer therapy. She will be treated with supplemental oxygen utilizing nasal cannula and/or noninvasive airway pressure support devices as needed to maintain an adequate oxygen saturation greater than 93%. She will receive Solu-Medrol IV 40 mg every 6 hours x3 doses. She will be continued on her usual medications for her chronic medical problems as appropriate. She will be placed on a diabetic diet with before meals and at bedtime Accu-Cheks and a sliding scale insulin for hyperglycemia as well as a hypoglycemic protocol in place. Daily CBCs and metabolic profiles will be obtained as needed. 09/14/2019 Vital signs this morning reveal temperature 97.5, pulse is 74 ,blood pressure 142/82 ,respiration rate of 22 ,O2 sat 99% on 2 L nasal cannula Patient is however requiring BiPAP as well White count was 13.1 on admission today it is 10.2 Potassium slightly high at 5.2 renal functions normal glucose is in the 300s Flu swab a and B is negative Chest x-ray on admission showed no acute cardiopulmonary disease Patient is on her meds as taken at home plus pulmonary toiletry include Solu- Medrol 40 mg IV every 6 hours No antibiotics indicated at this time. Will be DC to home tomorrow on p.o. steroids - Time Time Spent with patient: 25-34 minutes
[2019-09-16] MEDS: FLUTICASONE/VILANTEROL 200-25 MCG/DOSE IH SCH (17:51)
[2019-09-16] MEDS ORDERED: (PENDING PHARMACY ID) (Fluticasone/Salmeterol 1 INH) IH SCH (22:00)
[2019-09-16] MEDS: MONTELUKAST SODIUM 10 MG TABLET PO SCH (22:20)
[2019-09-17] MEDS: LEVALBUTEROL HCL NEB 1.25 MG/3 ML AMPUL NEB SCH ×2 (00:30→08:32)
[2019-09-17] MEDS: IPRATROPIUM BROMIDE 0.02% NEB 0.5 MG/2.5 ML AMPUL NEB SCH ×2 (00:30→08:32)
[2019-09-17] MEDS: HEPARIN SOD (PORCINE) 5,000 UNIT/ML 1 ML VIAL SUBCUT SCH (05:41)
[2019-09-17] MEDS: BUDESONIDE NEB 0.5 MG/2 ML AMPUL NEB SCH (08:32)
[2019-09-17 08:48] VITALS: BP 128/72
[2019-09-17] MEDS: GLIPIZIDE 5 MG TABLET PO SCH (09:23)
[2019-09-17] MEDS: METFORMIN HCL 500 MG TABLET PO SCH (09:23)
[2019-09-17] MEDS: FLUTICASONE/VILANTEROL 200-25 MCG/DOSE IH SCH (09:23)
[2019-09-17] MEDS: FAMOTIDINE 20 MG TABLET PO SCH (09:23)
[2019-09-17] MEDS: METHYLPREDNISOLONE INJ 40 MG/1 ML SDV IV SCH (09:24)
[2019-09-17] MEDS: INSULIN REG, HUMAN 100 UNIT/ML 3 ML VIAL (PYX) SUBCUT SCH ×2 (09:24→12:53)
[2019-09-17] MEDS: DOCUSATE SODIUM 100 MG CAPSULE PO SCH (09:27)
--- NOTE | 2019-09-17 12:00 | RADIOLOGY REPORT (SQ) ---
EXAM DESCRIPTION: ABDOMEN 2 VIEWS COMPLETED DATE/TIME: 09/17/2019 10:31 am REASON FOR STUDY: right flank pain x 2 months COMPARISON: None. NUMBER OF VIEWS: Two views. TECHNIQUE: Supine and erect/decubitus radiographic images of the abdomen acquired. LIMITATIONS: None. FINDINGS: FREE AIR: None. No abnormal gas collections. LUNG BASES: Clear. BOWEL GAS PATTERN: Nonobstructive. Large amount of stool throughout the colon. CALCIFICATIONS: No suspicious calcifications. SOFT TISSUES: No gross mass or suggestion of organomegaly. HARDWARE: None in the abdomen. BONES: No acute fracture. No worrisome bone lesions. OTHER: No other significant finding. IMPRESSION: NO RADIOGRAPHIC EVIDENCE FOR ACUTE ABDOMINAL DISEASE. TECHNICAL DOCUMENTATION: JOB ID: [id number] [employer]- All Rights Reserved Reading location - IP/workstation name: [email or web address]
--- NOTE | 2019-09-17 16:50 | PDOC DISCHARGE SUMMARY ---
Impression - Admit/DC Date/PCP Admission Date/Primary Care Provider: 09/15/19 22:25 SILVIA JACQUES MD Discharge Date: 09/17/19 - Discharge Diagnosis (1) Asthma exacerbation Is this a current diagnosis for this admission?: Yes (2) Diabetes mellitus type 2 in obese Is this a current diagnosis for this admission?: Yes (3) Obesity (BMI 30-39.9) Is this a current diagnosis for this admission?: Yes - Assessment Summary: Patient will be admitted to the medical floor for routine supportive and symptomatic cares. She will be treated with aggressive pulmonary toilet utilizing Xopenex, Atrovent and Pulmicort delivered via nebulizer therapy. She will be treated with supplemental oxygen utilizing nasal cannula and/or noninvasive airway pressure support devices as needed to maintain an adequate oxygen saturation greater than 93%. She will receive Solu-Medrol IV 40 mg every 6 hours x3 doses. She will be continued on her usual medications for her chronic medical problems as appropriate. She will be placed on a diabetic diet with before meals and at bedtime Accu-Cheks and a sliding scale insulin for hyperglycemia as well as a hypoglycemic protocol in place. Daily CBCs and metabolic profiles will be obtained as needed. 09/16/2019 Vital signs this morning reveal temperature 97.5, pulse is 74 ,blood pressure 142/82 ,respiration rate of 22 ,O2 sat 99% on 2 L nasal cannula Patient is however requiring BiPAP as well White count was 13.1 on admission today it is 10.2 Potassium slightly high at 5.2 renal functions normal glucose is in the 300s Flu swab a and B is negative Chest x-ray on admission showed no acute cardiopulmonary disease Patient is on her meds as taken at home plus pulmonary toiletry include Solu- Medrol 40 mg IV every 6 hours No antibiotics indicated at this time. Will be DC to home tomorrow on p.o. steroids 09/17/2019 patient's respirations are doing much better she is smiling talking in full sentences To me today however that for the last 2 to 3 months she has had some right-sided abdominal wall pain she says the pain will come and go Did a 2 view of her abdomen today, besides a large amount of stool, no free air, no air-fluid levels, thing out of the ordinary patient is going to see her primary care doctor next week and be referred to gastroenterology in [place] may need a CT scan of the abdomen with and without contrast she may need a upper endoscopy. Both she and her sister who are in the room do not want to see any internet architect here in [place]. Which is what she was admitted for. Discharged home on a Medrol Dosepak Vital signs are stable today she is medically stable for discharge - Additional Information Resuscitation Status: Full Code Discharge Diet: As Tolerated Discharge Activity: Balance Activity w/Rest Referrals: SILVIA JACQUES MD [Primary Care Provider] - Follow up as needed Prescriptions: Methylprednisolone [Medrol Dosepack (4 mg/Tab) 21 Tab/Dosepak] 4 mg PO ASDIR PRN #21 tab.ds.pk PRN Reason: Home Medications: Montelukast Sodium [Singulair 10 mg Tablet] 10 mg PO QHS 07/05/13 Glipizide/Metformin HCl [Glipizide-Metformin 5-500 mg] 2 each PO BID 12/12/13 Fluticasone Propionate [Flonase Nasal [place] 50 Mcg/[place] 16 gm] 2 sprays NASL Q12 06/20/14 Albuterol Sulfate [Proair HFA Inhalation Aerosol 8.5 gm MDI] 2 puff IH Q4HP PRN #1 hfa.aer.ad 06/22/14 Butalb/Acetaminophen/Caffeine [Fioricet 50-300-40 mg Capsule] 1 tab PO Q6HP PRN 09/15/19 Diazepam [Valium 5 mg Tablet] 1 tab PO BIDP PRN 09/15/19 Levocetirizine Dihydrochloride [Allergy Relief] 5 mg PO QHS 09/15/19 Fluticasone/Salmeterol [Advair 250-50 Diskus 14 Dose/Diskus] 1 inh IH Q12 09/16/19 Methylprednisolone [Medrol Dosepack (4 mg/Tab) 21 Tab/Dosepak] 4 mg PO ASDIR PRN #21 tab.ds.pk 09/17/19 History of Present Illiness History of Present Illness: RICARDO FARNSWORTH is a 49 year old female Physical Exam Vital Signs: Temp Pulse Resp BP Pulse Ox 98.5 F 62 20 128/72 H 99 09/17/19 13:07 09/17/19 13:07 09/17/19 13:07 09/17/19 13:07 09/17/19 13:07 Intake & Output 09/16/19 09/17/19 09/18/19 06:59 06:59 06:59 Intake Total 9900 3150 480 Balance 9900 3150 480 Weight 112.4 kg 112.5 kg Results Laboratory Results: WBC 10.2 10^3/uL (4.0-10.5) 09/16/19 05:33 RBC 4.26 10^6/uL (3.72-5.28) 09/16/19 05:33 Hgb 13.0 g/dL (12.0-15.5) 09/16/19 05:33 Hct 37.9 % (36.0-47.0) 09/16/19 05:33 MCV 89 fl (80-97) 09/16/19 05:33 MCH 30.4 pg (27.0-33.4) 09/16/19 05:33 MCHC 34.2 g/dL (32.0-36.0) 09/16/19 05:33 RDW 13.5 % (11.5-14.0) 09/16/19 05:33 Plt Count 270 10^3/uL (150-450) 09/16/19 05:33 Lymph % (Auto) 52.2 % (13-45) H 09/15/19 19:39 [place] % (Auto) 6.7 % (3-13) 09/15/19 19:39 Eos % (Auto) 2.8 % (0-6) 09/15/19 19:39 Baso % (Auto) 0.3 % (0-2) 09/15/19 19:39 Absolute Neuts (auto) 5.0 10^3/uL (1.7-8.2) 09/15/19 19:39 Absolute Lymphs (auto) 6.8 10^3/uL (0.5-4.7) H 09/15/19 19:39 Absolute Monos (auto) 0.9 10^3/uL (0.1-1.4) 09/15/19 19:39 Absolute Eos (auto) 0.4 10^3/uL (0.0-0.6) 09/15/19 19:39 Absolute Basos (auto) 0.0 10^3/uL (0.0-0.2) 09/15/19 19:39 Seg Neutrophils % 38.0 % (42-78) L 09/15/19 19:39 Carbonic Acid 0.87 mmol/L (1.05-1.35) L 09/15/19 21:15 HCO3/H2CO3 Ratio 20:1 09/15/19 21:15 ABG pH 7.41 (7.35-7.45) 09/15/19 21:15 ABG pCO2 29.0 mmHg (35-45) L 09/15/19 21:15 ABG pO2 135.2 mmHg (80-100) H 09/15/19 21:15 ABG HCO3 17.8 mmol/L (20-24) L 09/15/19 21:15 ABG Total CO2 18.7 mmol/L (21-25) L 09/15/19 21:15 ABG O2 Saturation 98.8 % (94-98) H 09/15/19 21:15 ABG Base Excess -5.4 mmol/L 09/15/19 21:15 FiO2 2L 09/15/19 21:15 Sodium 134.8 mmol/L (137-145) L 09/16/19 05:33 Potassium 5.2 mmol/L (3.6-5.0) H D 09/16/19 05:33 Chloride 99 mmol/L (98-107) 09/16/19 05:33 Carbon Dioxide 20 mmol/L (22-30) L 09/16/19 05:33 Anion Gap 16 (5-19) 09/16/19 05:33 BUN 12 mg/dL (7-20) 09/16/19 05:33 Creatinine 0.47 mg/dL (0.52-1.25) L 09/16/19 05:33 Est GFR ( Amer) > 60 (>60) 09/16/19 05:33 Est GFR (MDRD) Non-Af > 60 (>60) 09/16/19 05:33 Glucose 363 mg/dL (75-110) H 09/16/19 05:33 POC Glucose 339 mg/dL (70-110) H 09/17/19 12:46 Hemoglobin A1c % 9.0 % (4.7-6.0) H 09/16/19 05:33 Calcium 9.9 mg/dL (8.4-10.2) 09/16/19 05:33 Magnesium 2.0 mg/dL (1.6-2.3) 09/16/19 05:33 Total Bilirubin 0.5 mg/dL (0.2-1.3) 09/16/19 05:33 Direct Bilirubin 0.3 mg/dL (0.0-0.4) 09/16/19 05:33 Neonat Total Bilirubin Not Reportable 09/16/19 05:33 Neonat Direct Bilirubin Not Reportable 09/16/19 05:33 Neonat Indirect Bili Not Reportable 09/16/19 05:33 AST 84 U/L (14-36) H 09/16/19 05:33 ALT 90 U/L (<35) 09/16/19 05:33 Alkaline Phosphatase 55 U/L (38-126) 09/16/19 05:33 Troponin I < 0.012 ng/mL 09/15/19 19:39 Total Protein 7.1 g/dL (6.3-8.2) 09/16/19 05:33 Albumin 4.1 g/dL (3.5-5.0) 09/16/19 05:33 TSH 0.39 uIU/mL (0.47-4.68) L 09/16/19 05:33 Influenza A (Rapid) NEGATIVE (NEGATIVE) 09/15/19 19:45 Influenza B (Rapid) NEGATIVE (NEGATIVE) 09/15/19 19:45 09/15/19 19:39 Troponin I < 0.012 Impressions: Chest X-Ray 09/15/19 00:00 IMPRESSION: NO ACUTE RADIOGRAPHIC FINDING IN THE CHEST. Abdomen X-Ray 09/17/19 00:00 IMPRESSION: NO RADIOGRAPHIC EVIDENCE FOR ACUTE ABDOMINAL DISEASE. Stroke Is this a Stroke Patient?: No Acute Heart Failure - Is this a Heart Failure Patient?: No
== END 2019-09-17 13:35 | disposition home or self-care (01) | DRG 203 ==
LOC: ER 18:40 → EH 22:25 → 5 23:12
PROVIDERS: ADMIT Emergency Medicine; ATTEND Emergency Medicine
DX: J45.42 Moderate persistent asthma with status asthmaticus (principal); J45.41 Moderate persistent asthma with (acute) exacerbation; E11.8 Type 2 diabetes mellitus with unspecified complications; Z79.51 Long term (current) use of inhaled steroids
CPT/HCPCS: 36415; 71045; 74019; 80053; 82803; 82962; 83036; 83735; 84443; 84484; 85025; 85027; 87804; 94640; 94660; 96374; 96375; 99291; J1644; J1815; J2920; J2930; J3475; J3490; J7120; J7620

== ENCOUNTER → 2019-10-09 | Outpatient (CLI) | payer OTHER ==
--- NOTE | 2019-10-09 14:23 | RADIOLOGY REPORT (SQ) ---
EXAM DESCRIPTION: L SPINE WHOLE COMPLETED DATE/TIME: 10/09/2019 10:49 am REASON FOR STUDY: M54.5 LOW BACK PAIN R10.11 RIGHT UPPER QUADRANT PAIN COMPARISON: None. NUMBER OF VIEWS: Five views including obliques. TECHNIQUE: AP, lateral, oblique, and sacral radiographic images acquired of the lumbar spine. LIMITATIONS: None. FINDINGS: MINERALIZATION: Normal. SEGMENTATION: Normal. No transitional anatomy. ALIGNMENT: Normal. VERTEBRAE: Maintained height. No fracture or worrisome bone lesion. DISCS: Preserved height. There are some small marginal osteophytes at L1-2 the and at the superior a spect of L3. POSTERIOR ELEMENTS: Pedicles and facets are intact. No pars defect or posterior arch defects. HARDWARE: None in the spine. PARASPINAL SOFT TISSUES: Normal. PELVIS: Intact as visualized. No fractures or worrisome bone lesions. SI joints intact. OTHER: No other significant finding. IMPRESSION: Mild spondylosis. TECHNICAL DOCUMENTATION: JOB ID: [id number] [employer]- All Rights Reserved Reading location - IP/workstation name: [email or web address]
--- NOTE | 2019-10-09 14:31 | RADIOLOGY REPORT (SQ) ---
EXAM DESCRIPTION: SACRUM AND COCCYX COMPLETED DATE/TIME: 10/09/2019 10:49 am REASON FOR STUDY: M54.5 LOW BACK PAIN R10.11 RIGHT UPPER QUADRANT PAIN COMPARISON: None. NUMBER OF VIEWS: Three views. TECHNIQUE: AP, lateral, and tilt views of the sacrum and coccyx. LIMITATIONS: None. FINDINGS: MINERALIZATION: Normal. BONES: No acute fracture or dislocation. No worrisome bone lesions. SOFT TISSUES: No soft tissue swelling. No foreign body. OTHER: No other significant finding. IMPRESSION: NEGATIVE STUDY OF THE SACRUM AND COCCYX. TECHNICAL DOCUMENTATION: JOB ID: [id number] [employer]- All Rights Reserved Reading location - IP/workstation name: [email or web address]
--- NOTE | 2019-10-09 14:56 | RADIOLOGY REPORT (SQ) ---
EXAM DESCRIPTION: U/S ABDOMEN LIMITED W/O DOP COMPLETED DATE/TIME: 10/09/2019 11:09 am REASON FOR STUDY: R10.11 RIGHT UPPER QUADRANT PAIN R10.11 RIGHT UPPER QUADRANT PAIN COMPARISON: None. TECHNIQUE: Dynamic and static grayscale images acquired of the abdomen and recorded on PACS. Additio nal selected color Doppler and spectral images recorded. LIMITATIONS: None. FINDINGS: PANCREAS: No mass. No ductal dilatation. Tail of the pancreas is not well seen. LIVER: Hepatomegaly. Increased echogenicity. No definable mass. LIVER VASCULATURE: Normal directional flow of the main portal vein and hepatic veins. GALLBLADDER: No stones. Normal wall thickness. No pericholecystic fluid. ULTRASOUND-DETECTED DINH'S SIGN: Negative. INTRAHEPATIC DUCTS AND COMMON DUCT: CBD and intrahepatic ducts normal caliber. No filling defects. INFERIOR VENA CAVA: Not imaged. AORTA: No aneurysm. RIGHT KIDNEY: Normal size, 13.8 cm. Normal echogenicity. No solid or suspicious masses. No hydroneph rosis. No calcifications. PERITONEAL AND RIGHT PLEURAL SPACE: No ascites or effusions. OTHER: No other significant findings. IMPRESSION: Hepatomegaly with fatty infiltration of the liver. TECHNICAL DOCUMENTATION: JOB ID: [id number] [employer]- All Rights Reserved Reading location - IP/workstation name: [email or web address]
== END ==
LOC: RAD 10:05
PROVIDERS: ATTEND Family Medicine Geriatric Medicine
DX: M54.5 Low back pain (principal); M47.896 Other spondylosis, lumbar region; R10.11 Right upper quadrant pain; K76.0 Fatty (change of) liver, not elsewhere classified; R16.0 Hepatomegaly, not elsewhere classified
CPT/HCPCS: 72110; 72220; 76705

== ENCOUNTER → 2019-10-19 | Outpatient (CLI) | payer OTHER ==
[2019-10-19 08:41] LABS: ABSOLUTE EOSINOPHILS # (AUTO) 0.1 10^3/uL (0.0-0.6); ABSOLUTE LYMPHOCYTES (AUTO) 3.3 10^3/uL (0.5-4.7); ABSOLUTE MONOCYTES (AUTO) 0.6 10^3/uL (0.1-1.4); ABSOLUTE NEUT (AUTO) 2.3 10^3/uL (1.7-8.2); BASOPHILS % (AUTO) 0.4 % (0-2); EOSINOPHILS % (AUTO) 2.3 % (0-6); HEMATOCRIT 40.2 % (36.0-47.0); LYMPHOCYTES % (AUTO) 51.8 % (13-45); MEAN CORPUSCULAR HEMOGLOBIN 30.6 pg (27.0-33.4); MEAN CORPUSCULAR HGB CONC 34.8 g/dL (32.0-36.0); MEAN CORPUSCULAR VOLUME 88 fl (80-97); PLATELET COUNT 300 10^3/uL (150-450); RED BLOOD COUNT 4.56 10^6/uL (3.72-5.28); RED CELL DISTRIBUTION WIDTH 13.8 % (11.5-14.0); SEGMENTED NEUTROPHILS % (AUTO) 36.5 % (42-78); TOTAL CELLS COUNTED % (AUTO) 100 %; WHITE BLOOD COUNT 6.3 10^3/uL (4.0-10.5)
[2019-10-19 09:01] LABS: ALBUMIN 4.2 g/dL (3.5-5.0); ALKALINE PHOSPHATASE 55 U/L (38-126); AMYLASE 56 U/L (30-110); ANION GAP 10 (5-19); ASPARTATE AMINO TRANSFERASE 78 U/L (14-36); BILIRUBIN,TOTAL 0.4 mg/dL (0.2-1.3); BLOOD UREA NITROGEN 9 mg/dL (7-20); CALCIUM 9.6 mg/dL (8.4-10.2); CARBON DIOXIDE 27 mmol/L (22-30); CHLORIDE 102 mmol/L (98-107); CHOLESTEROL 195.86 mg/dL (0-200); GLUCOSE 154 mg/dL (75-110); TRIGLYCERIDES 285 mg/dL (<150)
[2019-10-19 09:12] LABS: DIRECT LDL 136 mg/dL (<100)
[2019-10-20 15:12] LABS: C DIFFICILE GDH NEGATIVE (NEGATIVE)
== END ==
LOC: OD 07:41
PROVIDERS: ATTEND Family Medicine Geriatric Medicine
DX: K52.9 Noninfective gastroenteritis and colitis, unspecified (principal); R10.11 Right upper quadrant pain; E11.9 Type 2 diabetes mellitus without complications; J30.9 Allergic rhinitis, unspecified; E78.5 Hyperlipidemia, unspecified; M62.838 Other muscle spasm; E66.9 Obesity, unspecified; Z79.899 Other long term (current) drug therapy
CPT/HCPCS: 36415; 80053; 80061; 82043; 82150; 82570; 83036; 83520; 83690; 83986; 84443; 85025; 87177; 87205; 87324; 87449

== ENCOUNTER → 2020-01-10 | Outpatient (CLI) | payer OTHER ==
[2020-01-10 09:05] LABS: ALBUMIN 4.2 g/dL (3.5-5.0); ALKALINE PHOSPHATASE 47 U/L (38-126); ANION GAP 9 (5-19); ASPARTATE AMINO TRANSFERASE 64 U/L (14-36); BILIRUBIN,TOTAL 0.2 mg/dL (0.2-1.3); BLOOD UREA NITROGEN 7 mg/dL (7-20); CALCIUM 9.1 mg/dL (8.4-10.2); CARBON DIOXIDE 27 mmol/L (22-30); CHLORIDE 101 mmol/L (98-107); GLUCOSE 171 mg/dL (75-110); POTASSIUM 4.5 mmol/L (3.6-5.0)
== END ==
LOC: OD 07:50
PROVIDERS: ATTEND Internal Medicine Gastroenterology
DX: R94.5 Abnormal results of liver function studies (principal)
CPT/HCPCS: 36415; 80053

== ENCOUNTER → 2020-03-07 | Outpatient (CLI) | payer OTHER ==
[2020-03-07 09:39] LABS: ANION GAP 10 (5-19); ASPARTATE AMINO TRANSFERASE 69 U/L (14-36); BLOOD UREA NITROGEN 6 mg/dL (7-20); CALCIUM 9.6 mg/dL (8.4-10.2); CARBON DIOXIDE 26 mmol/L (22-30); CHLORIDE 101 mmol/L (98-107); CHOLESTEROL 99.94 mg/dL (0-200); GLUCOSE 155 mg/dL (75-110); POTASSIUM 4.7 mmol/L (3.6-5.0); TRIGLYCERIDES 155 mg/dL (<150)
[2020-03-07 09:50] LABS: DIRECT LDL 48 mg/dL (<100)
[2020-03-08 11:37] LABS: CREATININE URINE 223.6 mg/dL (Not Estab.); MICROALBUMIN URINE 55.6 ug/mL (Not Estab.)
== END ==
LOC: OD 07:11
PROVIDERS: ATTEND Family Medicine Geriatric Medicine
DX: E78.5 Hyperlipidemia, unspecified (principal); R74.0 Nonspecific elevation of levels of transaminase and lactic acid dehydrogenase [LDH]; E11.9 Type 2 diabetes mellitus without complications; Z79.899 Other long term (current) drug therapy
CPT/HCPCS: 36415; 80048; 80061; 82043; 82570; 83036; 84450; 84460

== ENCOUNTER → 2020-08-08 | Outpatient (CLI) | payer OTHER ==
[2020-08-08 11:53] LABS: ALBUMIN 4.5 g/dL (3.5-5.0); ALKALINE PHOSPHATASE 54 U/L (38-126); ANION GAP 11 (5-19); ASPARTATE AMINO TRANSFERASE 47 U/L (14-36); BILIRUBIN,DIRECT 0.1 mg/dL (0.0-0.4); BILIRUBIN,TOTAL 0.3 mg/dL (0.2-1.3); BLOOD UREA NITROGEN 9 mg/dL (7-20); CALCIUM 9.8 mg/dL (8.4-10.2); CARBON DIOXIDE 26 mmol/L (22-30); CHLORIDE 102 mmol/L (98-107); CHOLESTEROL 178.11 mg/dL (0-200); GLUCOSE 88 mg/dL (75-110); POTASSIUM 4.3 mmol/L (3.6-5.0); TOTAL PROTEIN 7.6 g/dL (6.3-8.2); TRIGLYCERIDES 220 mg/dL (<150)
[2020-08-08 12:04] LABS: DIRECT LDL 117 mg/dL (<100)
== END ==
LOC: OD 10:23
PROVIDERS: ATTEND Family Medicine Geriatric Medicine
DX: E78.5 Hyperlipidemia, unspecified (principal); E11.9 Type 2 diabetes mellitus without complications; Z79.899 Other long term (current) drug therapy
CPT/HCPCS: 36415; 80053; 80061

== ENCOUNTER → 2020-10-04 | Outpatient (CLI) | payer OTHER ==
[2020-10-04 10:34] LABS: ALBUMIN 4.2 g/dL (3.5-5.0); ALKALINE PHOSPHATASE 58 U/L (38-126); ANION GAP 11 (5-19); ASPARTATE AMINO TRANSFERASE 25 U/L (14-36); BILIRUBIN,DIRECT 0.2 mg/dL (0.0-0.4); BILIRUBIN,TOTAL 0.3 mg/dL (0.2-1.3); BLOOD UREA NITROGEN 12 mg/dL (7-20); CARBON DIOXIDE 23 mmol/L (22-30); CHLORIDE 103 mmol/L (98-107); CHOLESTEROL 85.97 mg/dL (0-200); GLUCOSE 152 mg/dL (75-110); POTASSIUM 4.3 mmol/L (3.6-5.0); TOTAL PROTEIN 7.1 g/dL (6.3-8.2); TRIGLYCERIDES 116 mg/dL (<150)
[2020-10-04 10:50] LABS: DIRECT LDL < 30 mg/dL (<100)
== END ==
LOC: LAB 09:29
PROVIDERS: ATTEND Family Medicine Geriatric Medicine
DX: E78.5 Hyperlipidemia, unspecified (principal); I10 Essential (primary) hypertension; Z79.899 Other long term (current) drug therapy
CPT/HCPCS: 36415; 80053; 80061; 83036